=== PATIENT | female | born 1940 | race Caucasian/White ===

== ENCOUNTER 2022-05-29 15:40 | Emergency (ER) | payer OTHER ==
[~2022-05-29] VITALS: Ht 165.1 cm; Wt 65.8 kg
[2022-05-29 15:45] VITALS: BP_SYST 144
--- NOTE | 2022-05-29 15:45 | NUR ---
Patient triaged ON [facility] [address]. VSS and patient appears in no acute distress at this time. Accompanied by EMT'S, awaiting available bed, and MD notified of need for MSE.
--- NOTE | 2022-05-29 16:45 | NUR ---
AND DAUGHTER IN THE WR WISHING TO TAKE PT HOME, MADE AWARE
--- NOTE | 2022-05-29 16:55 | NUR ---
Patient does not wish to proceed with medical care recommended by DR. MOONEY. Patient given information related to possible complications, up to and including , which could occur as a result of leaving hospital at this time. Patient verbalizes understanding of risks involved leaving against medical advice. Patient has signed AMA form.
[2022-05-29 17:00] LABS: BASOPHILS # (AUTO) 0.1 K/uL (0.0-0.2); BASOPHILS % (AUTO) 2.2 % (0.0-2.0); EOSINOPHILS # (AUTO) 0.1 K/uL (0.0-0.4); EOSINOPHILS % (AUTO) 2.7 % (0.0-4.0); HEMATOCRIT 25.9 % (36-48); HEMOGLOBIN 8.4 g/dL (12.0-16.0); LYMPHOCYTES % (AUTO) 23.2 % (20.5-51.5); MEAN CORPUSCULAR HEMOGLOBIN 28 pg (27-31); MEAN CORPUSCULAR HGB CONC 33 % (32-36); MEAN CORPUSCULAR VOLUME 84 fL (79.0-98.0); MONOCYTES # (AUTO) 0.5 K/uL (0.0-1.0); MONOCYTES % (AUTO) 11.9 % (1.7-9.3); NEUTROPHILS # (AUTO) 2.6 K/uL (1.8-7.7); PLATELET COUNT (AUTO) 330 K/uL (130-430); RED BLOOD CELL COUNT(AUTO) 3.07 MIL/uL (4.2-6.2); RED CELL DISTRIBUTION WIDTH 13.8 % (9.0-15.0); WHITE BLOOD COUNT (AUTO) 4.4 K/uL (4.8-10.8)
[2022-05-29 17:07] LABS: ANION GAP 10 (5-15); CALCIUM 8.8 mg/dL (8.4-11.0); CHLORIDE 104 mmol/L (98-107); CREATININE 0.75 mg/dL (0.55-1.30); GLUCOSE 103 mg/dL (70-99); UREA NITROGEN, BLOOD 20 mg/dL (8-21)
[2022-05-29 17:26] LABS: ALANINE AMINOTRANSFERASE 16 U/L (12-78); ASPARTATE AMINOTRANSFERASE 17 U/L (10-37); TOTAL BILIRUBIN 0.2 mg/dL (0.0-1.0)
[2022-05-29 17:27] LABS: ALBUMIN 3.7 g/dL (3.4-4.8)
== END 2022-05-29 16:53 | disposition left against medical advice (07) ==
LOC: SED 15:40
DX: R53.1 Weakness (principal); D64.9 Anemia, unspecified; I10 Essential (primary) hypertension; Z88.1 Allergy status to other antibiotic agents; Z79.899 Other long term (current) drug therapy
CPT/HCPCS: 36415; 80053; 85025; 93005; 99284